=== PATIENT | female | born 1975 | race Caucasian/White ===

== ENCOUNTER 2018-11-25 09:02 | Emergency (ER) | payer OTHER ==
[~2018-11-25] VITALS: Ht 160 cm; Wt 61.2 kg
[2018-11-25 09:13] VITALS: BP 119/69
[2018-11-25] MEDS ORDERED: KETOROLAC 30 MG/ML VIAL IM ONE (10:10)
[2018-11-25 10:40] VITALS: BP 119/69
== END 2018-11-25 10:40 | disposition home or self-care (01) ==
LOC: MED 09:02
DX: M54.5 Low back pain (principal)
CPT/HCPCS: 96372; 99283; J1885